=== PATIENT | female | born 2000 | race Caucasian/White ===

== ENCOUNTER 2021-08-28 15:06 | Emergency (ER) | payer OTHER ==
[2021-08-28 15:33] LABS: Urine Blood Negative (Negative); Urine Glucose Negative (Negative); Urine Protein 1+ (Negative); Urine pH 8.5 (5.0-7.0)
--- NOTE | 2021-08-28 15:49 | RAD REPORT ---
EXAM DESCRIPTION: CT - Head Brain Wo Cont - 08/28/2021 3:41 pm CLINICAL HISTORY: seizure Headache, seizure COMPARISON: No comparisons TECHNIQUE: All CT scans are performed using dose optimization technique as appropriate and may inclu de automated exposure control or mA/KV adjustment according to patient size. FINDINGS: No intracranial hemorrhage, hydrocephalus or extra-axial fluid collection.No areas of brai n edema or evidence of midline shift. The paranasal sinuses and mastoids are clear. The calvarium is intact. IMPRESSION: No acute intracranial abnormality.
[2021-08-28 16:45] LABS: ALT/SGPT 17 U/L (12-78); AST/SGOT 6 U/L (15-37); Albumin 3.6 g/dL (3.4-5.0); Alkaline Phosphatase 54 U/L (45-117); Bilirubin Total 0.2 mg/dL (0.2-1.0); Creatine Phosphokinase 62 U/L (26-192); Lipase 68 U/L (73-393); Protein, Total 6.8 g/dL (6.4-8.2)
[2021-08-28 16:47] LABS: Bilirubin Direct < 0.1 mg/dL (0-0.2); CKMB Creatine Kinase MB < 1.0 ng/mL (1.0-3.6)
--- NOTE | 2021-08-28 18:24 | ER ---
Nurse's Notes [facility] Name: Fouzia Iverson Age: 20 yrs Sex: Female : 2000 Arrival Date: 08/28/2021 Time: 15:07 Bed 20 Private MD: Diagnosis: Syncope Presentation: 08/28 15:13 Chief complaint: Patient states: her hip popped, then after it popped she passed out, ap3 started convulsing, urinated on herself then vomited. Patient denies ever having a seizure in the past, however she reports her hips pop regularly. Coronavirus screen: At this time, the client does not indicate any symptoms associated with coronavirus-19. Ebola Screen: No symptoms or risks identified at this time. Initial Sepsis Screen: Does the patient meet any 2 criteria? No. Patient's initial sepsis screen is negative. Does the patient have a suspected source of infection? No. Patient's initial sepsis screen is negative. Risk Assessment: Do you want to hurt yourself or someone else? Patient reports no desire to harm self or others. Onset of symptoms was August 28, 2021 at 14:20. 15:13 Method Of Arrival: Ambulatory ap3 15:13 Acuity: MADHAV 3 ap3 Triage Assessment: 15:17 General: Appears in no apparent distress. Behavior is calm, cooperative. Pain: Denies ap3 pain. Neuro: Reports a syncopal episode weakness. Cardiovascular: Patient's skin is warm and dry. Respiratory: Airway is patent Respiratory effort is even, unlabored. GI: Reports nausea, vomiting. 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 - Social history:: Smoking status: Patient denies any tobacco usage or history of. Screenin:18 Abuse screen: Denies threats or abuse. Nutritional screening: No deficits noted. ap3 Tuberculosis screening: No symptoms or risk factors identified. 17:04 Fall Risk None identified. tw2 Assessment: 15:34 Reassessment: pt moved to [place] via stretcher at this time. tw2 16:21 Reassessment: Patient appears in no apparent distress at this time. No changes from tw2 previously documented assessment. Patient and/or family updated on plan of care and expected duration. Pain level reassessed. Patient is alert, oriented x 3, equal unlabored respirations, skin warm/dry/pink. 16:45 Reassessment: pt requesting something to eat at this time. pt given crackers at this tw2 time. 17:04 Reassessment: Patient appears in no apparent distress at this time. No changes from tw2 previously documented assessment. Patient and/or family updated on plan of care and expected duration. Pain level reassessed. Patient is alert, oriented x 3, equal unlabored respirations, skin warm/dry/pink. 17:35 Reassessment: Patient appears in no apparent distress at this time. No changes from tw2 previously documented assessment. Patient and/or family updated on plan of care and expected duration. Pain level reassessed. Patient is alert, oriented x 3, equal unlabored respirations, skin warm/dry/pink. Patient states feeling better. Patient states symptoms have improved. 18:04 Reassessment: Patient appears in no apparent distress at this time. No changes from tw2 previously documented assessment. Patient and/or family updated on plan of care and expected duration. Pain level reassessed. Patient is alert, oriented x 3, equal unlabored respirations, skin warm/dry/pink. 18:31 Reassessment: Patient appears in no apparent distress at this time. No changes from tw2 previously documented assessment. Patient and/or family updated on plan of care and expected duration. Pain level reassessed. Patient is alert, oriented x 3, equal unlabored respirations, skin warm/dry/pink. Vital Signs: 15:13 BP 119 / 87; Pulse 56; Resp 17; Temp 98.9; Pulse Ox 98% ; Weight 86.18 kg; Height 5 ft. ap3 10 in. (177.80 cm); 16:21 BP 104 / 72; Pulse 51; Resp 17; Pulse Ox 99% on R/A; tw2 17:04 BP 112 / 69; Pulse 63; Resp 17; Pulse Ox 97% on R/A; tw2 18:04 BP 124 / 84; Pulse 73; Resp 17; Pulse Ox 100% on R/A; tw2 15:13 Body Mass Index 27.26 (86.18 kg, 177.80 cm) ap3 ED Course: 15:07 Patient arrived in ED. am2 15:11 Arianna Olvera FNP-C [facility] kb 15:11 Waqas Mccray MD is Attending Physician. kb 15:15 Triage completed. ap3 15:18 Arm band placed on left wrist. ap3 15:21 Bed in low position. Call light in reach. Adult w/ patient. Pulse ox on. NIBP on. tw2 15:24 Cecilia Lloyd, RN is Primary Nurse. tw2 15:40 Inserted saline lock: 20 gauge in right antecubital area, using aseptic technique. tw2 Blood collected. 15:44 CT Head Brain wo Cont In Process Unspecified. EDMS 18:31 No provider procedures requiring assistance completed. IV discontinued, intact, tw2 bleeding controlled, No redness/swelling at site. Pressure dressing applied. Administered Medications: No medications were administered Medication: 17:59 VIS not applicable for this client. tw2 Outcome: 18:24 Discharge ordered by . kb 18:32 Discharged to home ambulatory, with significant other. tw2 18:32 Condition: stable 18:32 Discharge instructions given to patient, significant other, Instructed on discharge instructions, follow up and referral plans. Demonstrated understanding of instructions, follow-up care. 18:32 Patient left the ED. tw2 Signatures: Dispatcher [employer] EDNY Arianna Olvera FNP-C FNP-Cecilia Monae, RN RN tw2 Yee Hunt am2 Yee San RN RN ap3
--- NOTE | 2021-08-28 18:24 | EDPHYS ---
Physician Documentation [facility] Name: Fouzia Iverson Age: 20 yrs Sex: Female : 2000 Arrival Date: 08/28/2021 Time: 15:07 Bed 20 Private MD: ED Physician Waqas Mccray HPI: 08/28 18:29 This 20 yrs old Female presents to ER via Ambulatory with complaints of Syncope, shaky, kb Vomiting, Probable Seizure. 18:29 The patient has experienced syncope, lost consciousness. Onset: The symptoms/episode kb began/occurred just prior to arrival. Duration: This was a single episode. Context: the episode(s) was witnessed, by a friend, occurred at home, occurred while the patient was sitting, Just prior to the episode the patient experienced no apparent symptoms. Associated injury: The patient did not suffer any apparent associated injury. Associated signs and symptoms: The patient has no apparent associated signs or symptoms. Current symptoms: Currently, the patient is not experiencing any symptoms, the patient feels back to baseline, no decreased level of consciousness, no confusion, no dysphasia, no headache, no paralysis, no visual changes. The patient has not experienced similar symptoms in the past. The patient has not recently seen a physician. Pt states she has uneven hips and they pop and cause pain intermittently. States her hip popped earlier and she passed out then vomited. Friend states it looked like she was having convulsions. 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 - Social history:: Smoking status: Patient denies any tobacco usage or history of. ROS: 18:28 Constitutional: Negative for fever, chills, and weight loss. kb 18:28 Abdomen/GI: Positive for vomiting, Negative for abdominal pain, diarrhea. 18:28 Neuro: Positive for syncope. 18:28 All other systems are negative. Exam: 18:07 Constitutional: This is a well developed, well nourished patient who is awake, alert, kb and in no acute distress. Head/Face: Normocephalic, atraumatic. Eyes: Pupils equal round and reactive to light, extra-ocular motions intact. Lids and lashes normal. Conjunctiva and sclera are non-icteric and not injected. Cornea within normal limits. Periorbital areas with no swelling, redness, or edema. ENT: Moist Mucous membranes Cardiovascular: Regular rate and rhythm with a normal S1 and S2. No gallops, murmurs, or rubs. No pulse deficits. Respiratory: Respirations even and unlabored. No increased work of breathing. Talking in full sentences Abdomen/GI: Soft, non-tender. No distention Skin: Warm, dry with normal turgor. Normal color. MS/ Extremity: Pulses equal, no cyanosis. Neurovascular intact. Full, normal range of motion. Neuro: Awake and alert, GCS 15, oriented to person, place, time, and situation. Moves all extremities. Normal gait. Psych: Awake, alert, with orientation to person, place and time. Behavior, mood, and affect are within normal limits. 18:07 ECG was reviewed by the Attending Physician. Vital Signs: 15:13 BP 119 / 87; Pulse 56; Resp 17; Temp 98.9; Pulse Ox 98% ; Weight 86.18 kg; Height 5 ft. ap3 10 in. (177.80 cm); 16:21 BP 104 / 72; Pulse 51; Resp 17; Pulse Ox 99% on R/A; tw2 17:04 BP 112 / 69; Pulse 63; Resp 17; Pulse Ox 97% on R/A; tw2 18:04 BP 124 / 84; Pulse 73; Resp 17; Pulse Ox 100% on R/A; tw2 15:13 Body Mass Index 27.26 (86.18 kg, 177.80 cm) ap3 MDM: 15:11 Patient medically screened. lewis 18:29 Data reviewed: vital signs, nurses notes. Data interpreted: Pulse oximetry: on room air kb is 100 %. Interpretation: normal. Counseling: I had a detailed discussion with the patient and/or guardian regarding: the historical points, exam findings, and any diagnostic results supporting the discharge/admit diagnosis, lab results, radiology results, the need for outpatient follow up, a family practitioner, to return to the emergency department if symptoms worsen or persist or if there are any questions or concerns that arise at home. 18:32 ED course: Pt reports she is feeling fine and ready to go home. Will follow up with lewis neurology. 08/28 15:33 Order name: CPK; Complete Time: 16:49 kb 08/28 15:33 Order name: Ckmb; Complete Time: 16:49 kb 08/28 15:33 Order name: Hepatic Function; Complete Time: 16:49 kb 08/28 15:16 Order name: CT Head Brain wo Cont; Complete Time: 15:52 kb 08/28 15:16 Order name: Urine Dipstick-Ancillary (obtain specimen); Complete Time: 15:33 kb 08/28 15:16 Order name: Urine Test (obtain specimen); Complete Time: 15:33 kb 08/28 15:33 Order name: Lipase; Complete Time: 16:49 kb 08/28 15:33 Order name: Magnesium; Complete Time: 16:49 kb 08/28 15:33 Order name: EKG; Complete Time: 15:34 kb 08/28 15:34 Order name: Urine Dipstick-Ancillary; Complete Time: 15:44 EDMS 08/28 15:36 Order name: Urine --Ancillary (enter results); Complete Time: 16:11 [email or web address] 08/28 15:16 Order name: IV Start; Complete Time: 16:46 kb 08/28 15:33 Order name: EKG - Nurse/Tech; Complete Time: 16:46 kb 08/28 15:33 Order name: Labs collected and sent; Complete Time: 16:21 kb 08/28 15:33 Order name: NPO; Complete Time: 15:36 kb 08/28 15:33 Order name: O2 Per Protocol; Complete Time: 15:36 kb 08/28 15:33 Order name: O2 Sat Monitoring; Complete Time: 15:36 kb EC:07 Rate is 59 beats/min. Rhythm is regular. QRS [place] is Normal. CT interval is normal at kb 160 msec. QRS interval is normal at 82 msec. QT interval is normal at 434 msec. Administered Medications: No medications were administered Disposition: 18:52 Co-signature as Attending Physician, Waqas Mccray MD. rn Disposition Summary: 08/28/21 18:24 Discharge Ordered Location: Home kb Condition: Stable kb Diagnosis - Syncope kb Followup: kb - With: Emergency Department - When: As needed - Reason: Worsening of condition Followup: kb - With: Private Physician - When: 2 - 3 days - Reason: Recheck today's complaints, Continuance of care, Re-evaluation by your physician Discharge Instructions: - Syncope, [id number] kb - Discharge Summary Sheet tw2 Forms: - Medication Reconciliation Form kb - Thank You Letter kb - Antibiotic Education kb - Prescription Opioid Use kb - Work release form tw2 - Family Work Release tw2 Signatures: Dispatcher [employer] Arianna Silva, Waqas Olivo MD MD rn Prokisch, Amanda, RN RN ap3
[2021-08-28 18:46] VITALS: TEMP 98.9
[2021-08-28 18:54] VITALS: BP 124/84; O2SAT 100
--- NOTE | 2021-08-29 07:50 | EKG ---
Test Date: 2021-08-28 Test Time: 16:42:41 Aerologist: JOSESITO MEASUREMENT RESULTS: Intervals: Rate: 59 [place]: 160 QRSD: 82 QT: 434 QTc: 429 [place]: P: 52 [place]: 160 QRS: 32 T: 16 INTERPRETIVE STATEMENTS: Sinus bradycardia Otherwise normal ECG No previous ECG available for comparison Electronically Signed On 08-29-21 07:48:23 CDT by Kenn Guerrero
== END 2021-08-28 18:32 | disposition home or self-care (01) ==
LOC: ER 15:06
DX: R55 Syncope and collapse (principal)
CPT/HCPCS: 36415; 70450; 80076; 81003; 81025; 82550; 82553; 83690; 83735; 93005; 99284